=== PATIENT | female | born 1960 | race American Indian/Alaskan Native ===

== ENCOUNTER 2018-03-31 06:51 | Emergency (ER) | payer OTHER ==
[2018-03-31 06:51] VITALS: BMI 32.4
[2018-03-31 07:40] VITALS: RESP 18
[2018-03-31 07:45] VITALS: TEMP 97.9
[2018-03-31] MEDS ORDERED: Sodium Chloride 0.9% 1,000 ML IV STA (08:24)
--- NOTE | 2018-03-31 08:38 | ED PDOC ---
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 Patient reports intermittent epigastric abdominal pain radiating to left lower abdomen. She notes associated nausea and non-bloody vomiting which becomes retching. Patient also reports chronic constipation with small hard bowel movements approximately every 4 days. Patients last bowel movement was yesterday morning. Patient denies any fever, chills, dysuria, vaginal bleeding, chest pain, shortness of breath, cough or any other complaints. Time/Duration: Other (2 months) Symptom Course: Intermittent Context: Home Past Medical History - Provider Review Nursing Documentation Reviewed: Yes - Infectious Disease Hx of Infectious Diseases: None - Reproductive Menopause: Yes - Cardiac Hx Hypertension: Yes Hx Peripheral Edema: Yes - Pulmonary Hx Respiratory Disorders: No - Neurological Hx Neurological Disorder: No - HEENT Hx HEENT Disorder: Yes (GLASSES) - Renal Hx Renal Disorder: No - Endocrine/Metabolic Hx Endocrine Disorders: No - Hematological/Oncological Hx Blood Transfusions: Yes Hx Blood Transfusion Reaction: No Hx Sickle Cell Trait: No - Integumentary Hx Dermatological Disorder: No - Musculoskeletal/Rheumatological Hx Musculoskeletal Disorders: Yes Hx Back Pain: Yes (LUMBAR) Hx Rheumatoid Arthritis: Yes - Gastrointestinal Hx Gastrointestinal Disorders: No - Genitourinary/Gynecological Hx Reproductive Disorders: Yes (S/P HYSTERECTOMY EXCESSIVE MENSTRUAL BLEEDING) - Psychiatric Hx Psychophysiologic Disorder: No Hx Substance Use: No - Surgical History Hx Hysterectomy: Yes Other/Comment: EPIDURALS - Anesthesia Hx Anesthesia: Yes Hx Anesthesia Reactions: No Hx Malignant Hyperthermia: No Family/Social History - Physician Review Nursing Documentation Reviewed: Yes Family/Social History: No Known Family HX Smoking Status: Never Smoked Hx Alcohol Use: No Hx Substance Use: No Allergies/Home Meds Allergies/Adverse Reactions: Allergies aspirin Allergy (Intermediate, Verified 02/17/18 10:57) ITCHING also rash Home Medications: Home Meds Medication Instructions Recorded Confirmed Folic Acid 1 tab PO HS 02/17/18 03/31/18 Methotrexate 6 tab PO QWK 02/17/18 03/31/18 Morphine [Morphine Extended 1 tab PO TID PRN 02/17/18 03/31/18 Release Tab] Omeprazole 1 cap PO DAILY 02/17/18 03/31/18 amLODIPine [Norvasc] 1 tab PO DAILY 02/17/18 02/18/18 Review of Systems - Physician Review All systems were reviewed & negative as marked: Yes - Review of Systems Constitutional: absent: Fevers, Night Sweats Respiratory: absent: SOB, Cough Cardiovascular: absent: Chest Pain Gastrointestinal: Abdominal Pain, Constipation, Nausea, Vomiting Genitourinary Female: absent: Dysuria, Vaginal Bleeding Physical Exam - Physical Exam Narrative Physical Exam (Text): Constitutional: No acute distress. Head: Normocephalic. Atraumatic. Eyes: PERRL. ENT: Moist mucous membranes. Neck: Supple. Cardiovascular: Regular rate. Chest: No tenderness. Respiratory: Clear to auscultation bilaterally. GI: Epigastric tenderness without guarding. Soft. Nondistended. No RLQ tenderness. Back: No CVA tenderness. Musculoskeletal: No tenderness or swelling of extremities. Skin: No rash. Neurologic: Alert, no focal deficit. Vital Signs Reviewed: Yes Vital Signs Temp Pulse Resp BP Pulse Ox 03/31/18 11:18 73 18 131/83 98 03/31/18 09:30 75 18 128/81 99 03/31/18 07:44 97.9 F 87 18 131/85 97 03/31/18 07:20 98.5 F 94 H 18 126/81 97 Temperature: Afebrile Blood Pressure: Normal Pulse: Regular Respiratory Rate: Normal Appearance: Positive for: Well-Appearing, Non-Toxic, Comfortable Pain Distress: None Mental Status: Positive for: Alert and Oriented X 3 Medical Decision Making ED Course and Treatment: 03/31/18 08:34 Impression: A 58 year old female with abdominal pain for 2 months. Patient notes constipation. Differential Diagnosis included but are not limited to: Constipation vs. SBO vs. Colitis Plan: -- Abdomen and pelvis CT -- EKG -- Labs -- Zofran and IV fluids -- Reassess and disposition Progress Notes: Report Date : 03/31/2018 10:39:39 PROCEDURE: CT Abdomen and Pelvis with contrast Dictator : Anuj Plunkett MD IMPRESSION: Mild fatty hepatic infiltration. Tiny low-attenuation focus upper pole right kidney too small to characterize though likely represents small renal cyst. Followup interval could be performed to assess stability. Multiple nondistended fluid-filled loops of small bowel nonspecific; rule out nonspecific ileus, enteritis or diarrheal illness. . There is also moderate amount of stool seen within the cecum ascending and transverse colon suggesting mild fecal retention/constipation. The appendix is upper limits/top-normal and diameter measuring approximately up to 6.3 mm in greatest diameter. . No obvious inflammatory changes are identified within the adjacent mesentery however clinical correlation recommended as these findings are equivocal for possible early acute appendicitis. Apparent postoperative changes of hysterectomy. See above discussion for additional details, findings and recommendations. Patient with no vomiting in ED. Labs unremarkable. Advised daily constipation medication and diet, antibiotics to cover enteritis, instructed to return to ED immediately for any fever, RLQ tenderness, or constant pain. - Lab Interpretations Lab Results: 03/31/18 09:20 03/31/18 09:20 Lab Results 03/31/18 09:20: Sodium 148, Potassium 4.2, Chloride 105, Carbon Dioxide 31, Anion Gap 16, BUN 10, Creatinine 0.8, Est GFR ( Amer) > 60, Est GFR (Non- Af Amer) > 60, Random Glucose 101, Calcium 9.6, Total Bilirubin 0.3, AST 32, ALT 35, Alkaline Phosphatase 108, Total Protein 8.2, Albumin 4.4, Globulin 3.7, Albumin/Globulin Ratio 1.2, Lipase 57 03/31/18 09:20: WBC 11.3 H, RBC 4.53, Hgb 14.2, Hct 41.7, MCV 92.1, MCH 31.3, MCHC 34.1, RDW 14.2, Plt Count 267, MPV 11.5 H, Gran % 76.3 H, Lymph % (Auto) 18.5 L, [place] % (Auto) 4.0, Eos % (Auto) 1.0 L, Baso % (Auto) 0.2, Gran # 8.61 H , Lymph # (Auto) 2.1, [place] # (Auto) 0.5, Eos # (Auto) 0.1, Baso # (Auto) 0.02 I have reviewed the lab results: Yes - RAD Interpretation Radiology Orders: 03/31/18 08:24 ABD & PELVIS IV CONTRAST ONLY [CT] Stat - Medication Orders Current Medication Orders: Discontinued Medications Sodium Chloride (Sodium Chloride 0.9%) 1,000 mls @ 999 mls/hr IV .Q1H1M STA Stop: 03/31/18 09:24 Last Admin: 03/31/18 09:01 Dose: 999 mls/hr eMAR Start Stop Document 03/31/18 09:01 HI (Rec: 03/31/18 09:01 OR [id number]) Intravenous Solution Start Date 03/31/18 Start Time 09:01 Ondansetron HCl (Zofran Inj) 8 mg IVP STAT STA Stop: 03/31/18 08:25 Last Admin: 03/31/18 09:01 Dose: 8 mg IVP Administration Document 03/31/18 09:01 OR (Rec: 03/31/18 09:01 OR [id number]) Charges for Administration # of IVP Administrations 1 - Scribe Statement The provider has reviewed the documentation as recorded by the Scribe Nikkie Mak Provider Scribe Attestation: All medical record entries made by the Scribe were at my direction and personally dictated by me. I have reviewed the chart and agree that the record accurately reflects my personal performance of the history, physical exam, medical decision making, and the department course for this patient. I have also personally directed, reviewed, and agree with the discharge instructions and disposition. Disposition/Present on Arrival - Present on Arrival Any Indicators Present on Arrival: No History of DVT/PE: No History of Uncontrolled Diabetes: No Urinary Catheter: No History of Decub. Ulcer: No History Surgical Site Infection Following: None - Disposition Have Diagnosis and Disposition been Completed?: Yes Diagnosis: Constipation, Enteritis Disposition: HOME/ ROUTINE Disposition Time: 10:44 Patient Plan: Discharge Condition: STABLE Discharge Instructions (ExitCare): Constipation, Adult (DC) Prescriptions: Ciprofloxacin [Cipro] 500 mg PO BID #14 tab Metronidazole [Flagyl] 500 mg PO Q8 #30 tab Polyethylene Glycol 3350 [Miralax] 17 gm PO DAILY #238 gm Referrals: Sara Rios MD [Primary Care Provider] - Follow up with primary Forms: [employer] (Vietnamese)
[2018-03-31 09:44] LABS: BASO # 0.02 K/mm3 (0.0-2.0); BASO % 0.2 % (0.0-3.0); EOS # 0.1 (0.0-0.7); GRAN # 8.61 (1.4-6.5); GRAN % 76.3 % (50.0-68.0); HEMOGLOBIN 14.2 g/dL (12.0-16.0); LYMPH # 2.1 (1.2-3.4); LYMPH % 18.5 % (22.0-35.0); MEAN CELL VOLUME 92.1 fl (80.0-105.0); MEAN CORPUSCULAR HEMOGLOBIN 31.3 pg (25.0-35.0); MEAN CORPUSCULAR HGB CONC 34.1 g/dl (31.0-37.0); MEAN PLATELET VOLUME 11.5 fl (7.0-11.0); MONO # 0.5 (0.1-0.6); RBC 4.53 10^6/uL (3.5-6.1); RED CELL DISTRIBUTION WIDTH 14.2 % (11.5-14.5); WHITE BLOOD COUNT 11.3 10^3/ul (4.5-11.0)
[2018-03-31 09:49] LABS: ALB/GLOB RATIO 1.2 (1.1-1.8); ALBUMIN 4.4 g/dL (3.0-4.8); ALT/SGPT 35 U/L (7-56); AST/SGOT 32 U/L (14-36); BLOOD UREA NITROGEN 10 mg/dL (7-21); CALCIUM 9.6 mg/dL (8.4-10.5); GFR AFRICAN-AMERICAN > 60; GFR NON-AFRICAN AMERICAN > 60; LIPASE 57 U/L (23-300)
[2018-03-31] MEDS ORDERED: Iohexol 350 MG/100 ML VIAL ONE (09:54)
--- NOTE | 2018-03-31 10:41 | CT ---
PROCEDURE: CT Abdomen and Pelvis with contrast HISTORY: Abdominal pain COMPARISON: No prior study available comparison TECHNIQUE: Contrast dose: 100 cc Omnipaque 350 contrast material Radiation dose: Total exam DLP = 831.72 mGy-cm. This CT exam was performed using one or more of the following dose reduction techniques: Automated exposure control, adjustment of the mA and/or kV according to patient size, and/or use of iterative reconstruction technique. . FINDINGS: LOWER THORAX: Mild passive/dependent type atelectasis both posterior lower lung orellana. There is a a small area of on the somewhat micronodular opacities in the left lingular region possibly representing some scarring or atelectasis as well. No evidence of effusion or basilar pneumothorax. Heart size is within range of normal. No significant pericardial effusion. There is a small hiatal hernia with some mild wall thickening of the distal esophagus likely due to protrusion of gastric mucosa. Possibility of esophagitis not excluded. Clinical correlation recommended. LIVER: Liver exhibits normal size measuring approximately 15 cm in CC dimension. Mild diffuse fatty hepatic infiltration. No obvious hepatic mass collection or calcification. GALLBLADDER AND BILE DUCTS: Gallbladder is physiologically distended. No evidence of intraluminal gallbladder calculi. PANCREAS: Pancreas appears unremarkable without masses or collections. Pancreatic duct is visible lobe does not appear significantly dilated. SPLEEN: Spleen exhibits normal size and attenuation pattern without mass collection or calcification. ADRENALS: There are no adrenal lesions seen. KIDNEYS AND URETERS: Kidneys demonstrate symmetric nephrograms. No evidence of nephrolithiasis or hydronephrosis. There is a tiny approximately 4.4 mm elliptical shaped low-attenuation focus within the cortex medial aspect upper pole left kidney that is too small characterize though probably represents a small renal cyst. Followup interval could be performed to assess stability. VASCULATURE: No evidence of abdominal aortic or iliac artery aneurysms. BOWEL: Evaluation of the bowel is limited due to the lack of oral contrast material. The stomach is incompletely distended which in part accounts for thick-walled appearance. There are multiple nondistended distended fluid-filled loops of small bowel nonspecific. Rule out nonspecific ileus, mild enteritis or diarrheal illness. Moderate amount of stool seen within the cecum at ascending and transverse colon consistent with mild fecal retention/constipation. APPENDIX: The appendix is upper limits/top-normal and diameter measuring approximately up to 6.3 mm in greatest diameter. . No obvious inflammatory changes are identified within the adjacent mesentery however clinical correlation recommended as these findings are equivocal for possible early acute appendicitis. PERITONEUM: Unremarkable. No free fluid. No free air. LYMPH NODES: Unremarkable. No enlarged lymph nodes. BLADDER: Unremarkable. REPRODUCTIVE: Apparent postoperative changes of hysterectomy BONES: Mild multilevel degenerative spondylosis of the lower thoracic and lumbar spine. . Minimal dextroscoliosis lumbar spine OTHER FINDINGS: None. IMPRESSION: Mild fatty hepatic infiltration. Tiny low-attenuation focus upper pole right kidney too small to characterize though likely represents small renal cyst. Followup interval could be performed to assess stability. Multiple nondistended fluid-filled loops of small bowel nonspecific; rule out nonspecific ileus, enteritis or diarrheal illness. . There is also moderate amount of stool seen within the cecum ascending and transverse colon suggesting mild fecal retention/constipation. The appendix is upper limits/top-normal and diameter measuring approximately up to 6.3 mm in greatest diameter. . No obvious inflammatory changes are identified within the adjacent mesentery however clinical correlation recommended as these findings are equivocal for possible early acute appendicitis. Apparent postoperative changes of hysterectomy. See above discussion for additional details, findings and recommendations.
[2018-03-31 11:39] VITALS: BP 131/83; PULSE 73; O2SAT 98
--- NOTE | 2018-03-31 16:34 | CARD ---
APPROVED REPORT EKG Measurement Heart [id number] <Conclusion> Normal sinus rhythm Nonspecific T wave abnormality Prolonged QT Q in 3 QS in , possible septal VT, age unknown
== END 2018-03-31 11:18 | disposition home or self-care (01) ==
LOC: ED 06:51
DX: K52.9 Noninfective gastroenteritis and colitis, unspecified (principal); K59.00 Constipation, unspecified; I10 Essential (primary) hypertension
CPT/HCPCS: 74177; 80053; 83690; 85025; 93005; 96374; 99284; J2405; J7040; Q9967